=== PATIENT | female | born 1955 | race Caucasian/White ===

== ENCOUNTER → 2017-11-17 | Outpatient (CLI) | payer OTHER, BC | LOC: RAD 15:07 | DX: Z12.31 Encounter for screening mammogram for malignant neoplasm of breast (principal) ==

== ENCOUNTER → 2018-12-10 | Outpatient (CLI) | payer OTHER | LOC: RAD 10:34 | DX: Z12.31 Encounter for screening mammogram for malignant neoplasm of breast (principal) ==

== ENCOUNTER → 2020-09-28 | Outpatient (CLI) | payer OTHER | LOC: ULTRA 13:08 | PROVIDERS: ATTEND Hospitalist | DX: N64.4 Mastodynia (principal) ==